=== PATIENT | male | born 1980 | race Caucasian/White ===

== ENCOUNTER 2022-11-16 08:09 | Emergency (ER) | payer OTHER, SELFPAY ==
[2022-11-16 08:09] VITALS: BP 117/72; PULSE 105; RESP 18; TEMP 36.4; O2SAT 100; BMI 23.6
--- NOTE | 2022-11-16 09:08 | EX.ED.VIS.HA ---
HPI History of Present Illness Chief Complaint: Headache Informant: patient Narrative Narrative: Presents for persistent pounding headache bilaterally with pressure from his ears. No visual changes no photophobia no phonophobia. No nausea or vomiting. He states he gets this yearly for the past 8 years since coming back to [place] from the [employer]. He denies any head trauma. Denies any allergies to medications. He lives alone and states he does have a dog that is normal. He has a carbon monoxide monitor at home. Prior similar symptoms: Yes PFSH PFSH Medical History no medical history Home Medications NK 11/16/22 [History Last Taken Unknown] Allergy/AdvReac Type Severity Reaction Status Date / Time onion Allergy Hives Verified 11/16/22 08:12 Social History Smoking Status: Never smoker ROS ROS ED Constitutional Constitutional ED: Denies chills, fever(s) or sweats Eyes Eyes: Denies change in vision ENT ENT ED: Denies dysphagia or sore throat Cardiovascular Cardiovascular: Denies chest pain, leg edema, palpitations or racing heartbeat Respiratory/Chest Respiratory/Chest: Denies cough, dyspnea or dyspnea on exertion Gastrointestinal Gastrointestinal: Denies abdominal pain, diarrhea, nausea or vomiting Genitourinary Genitourinary ED: Denies dysuria, hematuria or urinary frequency Musculoskeletal Musculoskeletal: Denies back pain, extremity pain or neck pain Integumentary Denies rash or wounds Neurologic Neurologic: Reports headache(s); Denies paresthesias or weakness EXAM Physical Exam Const Vital Signs: 11/16/22 08:09 11/16/22 09:23 Temperature 97.6 F L Temperature Source Temporal Pulse Rate 105 H Respiratory Rate 18 Blood Pressure 117/72 Blood Pressure Mean 87 Pulse Ox 100 Oxygen Delivery Method Room Air Non-Rebreather Oxygen Flow Rate (L/min) 15 Positive well nourished and well developed General Appearance ED: well developed and NAD HEENT Reports TM's clear and moist mucous membranes normocephalic and atraumatic Tympanic Membrane ED: Yes TM's clear Eyes PERRL, EOMs intact bilaterally and conjunctivae normal General Eye ED: Yes normal appearance of both eyes Neck no lymphadenopathy, supple and no meningeal signs General: Negative for tenderness Chest Wall Chest: Negative for tenderness Resp normal respiratory effort and normal air movement Effort and Inspection: symmetric chest movement; Negative for respiratory distress Cardio regular rate, regular rhythm and no murmurs Peripheral Pulses: pulses 2+ throughout GI normal to inspection, nondistended, normoactive bowel sounds and non-tender Palpation: Negative for guarding or rebound tenderness present Back/Spine no CVA tenderness and no thoracic nor lumbar tenderness Extremity normal to inspection General Extremety ED: Negative for edema or tenderness General Extremity: Negative for edema Neuro oriented x3, CN's II-XII intact bilaterally and no sensory deficits noted Sensorium / Orientation: awake and alert Skin no rashes or lesions noted and no wounds MDM MDM MDM Narrative Medical decision making narrative: Patient with persistent headache for 1 week no trauma. Usually similar symptoms. States pounding headache. Differential includes cluster headaches, carbon monoxide exposure, subarachnoid hemorrhage, migraine headaches or meningitis. Clinically no meningismus. He states he has a carbon monoxide monitor at home he has a PET that is normal. He was placed on 100% nonrebreather for treatment potential cluster headache symptoms. 1020: Reevaluation has removed oxygen state made his headache worse. Treated with Reglan Benadryl and fluids. Obtain a CT head for further evaluation. 1245: CT brain reviewed by myself and agree with radiologist negative scan. Reevaluation clinically improved. Patient follow-up as an outpatient with return precautions. All questions were answered. Radiography Diagnostic Testing: Clinical Impression(s) from Imaging Studies Brain CT 11/16/22 10:23 IMPRESSION: Normal unenhanced CT scan of the brain. Electronically Signed: Soto Taylor MD at 11:11 EST , Discharge Plan Triage Chief Complaint: Headache ED Provider: Aureliano Goss Dx/Rx/DC Orders Clinical Impression: Headache Instructions: ED Headache Unspecified Prescriptions: No Action NK [facility] [[facility]] - 1 Week if not improving Activity Restrictions/Additional Instructions: CT brain negative. Improved with Reglan and Benadryl. Monitor symptoms follow-up with your doctor. Return if any worsening symptoms. Disposition Disposition: Home, Self Care
--- NOTE | 2022-11-16 10:23 | CT_ITS ---
STUDY: CT BRAIN WITHOUT CONTRAST REASON FOR EXAM: Male, 41 years old. Headache RADIATION DOSAGE (If Supplied By Facility): CTDIvol = ( 44.99 ) mGy, DLP = ( 812.98 ) mGycm TECHNIQUE: Transaxial CT imaging of the brain was performed without administration of intravenous contrast material. Individualized dose optimization techniques were used for this CT. COMPARISON: No relevant priors. FINDINGS: Normal soft tissue structures. Normal calvarium. Normal size ventricles and extra-axial spaces for the patient''s age. Normal white matter tracts of the cerebral hemispheres. Normal basal ganglia and thalami. Normal brainstem. Normal cerebellum. There is no intracranial hemorrhage. There are no findings of an acute ischemic infarction. Normal visualized paranasal sinuses. CT/Brain/Head without Contrast IMPRESSION: Normal unenhanced CT scan of the brain. Electronically Signed: Soto Taylor MD at 11:11 EST ,
[2022-11-16] MEDS: Metoclopramide 10 MG/2 ML Vial IV (10:48)
[2022-11-16] MEDS: DiphenhydrAMINE 50 MG/ML Syringe 25 MG IV (10:48)
== END 2022-11-16 12:55 | disposition home or self-care (01) ==
PROVIDERS: Emergency Provider Emergency Medicine; Visit Provider Emergency Medicine
DX: R51.9 Headache, unspecified (principal)
CPT/HCPCS: 70450; 96361; 96374; 96375; 99282; J7040; A4216